=== PATIENT | female | born 1995 | race Caucasian/White ===

== ENCOUNTER 2020-09-04 17:00 | Outpatient (REF) | payer OTHER, SELFPAY | END 2020-09-04 17:01 | disposition home or self-care (01) | LOC: HO.LAB 17:00 | PROVIDERS: Visit Provider Internal Medicine | DX: Z20.828 Contact with and (suspected) exposure to other viral communicable diseases (principal) | CPT/HCPCS: C9803; U0003 ==

== ENCOUNTER 2020-10-20 13:30 | Outpatient (REF) | payer BC, SELFPAY | END 2020-10-20 13:31 | disposition home or self-care (01) | LOC: HO.LAB 13:30 | PROVIDERS: Visit Provider Internal Medicine | DX: Z20.822 Contact with and (suspected) exposure to COVID-19 (principal) | CPT/HCPCS: 36415; C9803; U0003 ==